=== PATIENT | female | born 1980 | race African-American/Black ===

== ENCOUNTER 2017-02-20 18:29 | Emergency (ER) | payer BC ==
[~2017-02-20] VITALS: Ht 154.9 cm; Wt 57.0 kg
[~2017-02-20 18:29] MED LIST: VIST50CA PO; Z.0.NO CURRENT MEDS
[2017-02-20 18:40] VITALS: BP 133/84; PULSE 72; RESP 16; TEMP 98.4; O2SAT 100
[2017-02-20 19:12] LABS: BLOOD, URINE LARGE (NEG); GLUCOSE,URINE NEG (NEG); KETONE, URINE NEG (NEG); NITRITE,URINE NEG (NEG)
[2017-02-20 19:22] LABS: MUCUS URINE FEW /lpf (OCC); RBC, URINE INNUM /hpf (0-3); SQUAMOUS EPITHELIAL CELL URINE 0-5 /hpf (0-5); URINE COLOR ORANGE (YELLW/STRAW)
[2017-02-20 19:23] LABS: COMMENT (UR) CULT NOT INDICATED; CULTURE IF INDICATED CULT NOT INDICATED; WBC, URINE 0-2 /hpf (0-5)
[2017-02-20] MEDS ORDERED: VENTAER INH (19:36)
[2017-02-20] MEDS ORDERED: ZANT300T PO (19:38)
[2017-02-20] MEDS ORDERED: BENT20TA PO (19:38)
--- NOTE | 2017-02-20 19:39 | PD ---
HPI Chief Complaint: GI Complaint Time Seen by Provider: 19:22 Travel History International Travel<30 days: No Contact w/Intl Traveler<30days: No Traveled to known affect area: No History of Present Illness HPI This 36-year-old female says she been having trouble with her stomach. She says she is always had trouble with her stomach but is been a little worse recently. He says after eating she feels distended. He takes a while for distention to go down. He has trouble laying on her left side uncomfortable for her laying on the right side is fine. She is not on any medication. She has cut back on her diet and the symptoms have not abated. There has not been any vomiting or diarrhea. [facility] Past Medical History Asthma: Yes (HAS NOT HAD TO USE AN INHALER SINCE 2006 ) Diminished Hearing: No Immunizations Current: Yes : 0 Social History Alcohol Use: No Tobacco Use: No Substance Use: No Allergies-Medications (Allergen,Severity, Reaction): Coded Allergies: Prednisone (Verified Allergy, Unknown, Twitching, 02/20/17) Reported Meds & Prescriptions Reported Meds & Active Scripts Active Vistaril (Hydroxyzine Pamoate) 50 Mg Cap 50-100 Mg PO HSPRN for sleep Reported No Current Meds (Miscellaneous Medication) Misc Review of Systems General / Constitutional: No: Fever, Chills Eyes: No: Diploplia, Blurred Vision HENT: No: Headaches, Vertigo Cardiovascular: No: Chest Pain or Discomfort, Palpitations Respiratory: No: Cough, Shortness of Breath Gastrointestinal: Positive: Abdominal Pain, No: Vomiting, Diarrhea Genitourinary: No: Urgency, Nocturia Musculoskeletal: No: Myalgias, Arthralgias Skin: No Rash Neurologic: No: Weakness Hematologic/Lymphatic: No: Easy Bruising Physical Exam Narrative GENERAL: Well-developed female SKIN: Focused skin assessment warm/dry. HEAD: Atraumatic. Normocephalic. EYES: Pupils equal and round. No scleral icterus. No injection or drainage. ENT: No nasal bleeding or discharge. Mucous membranes pink and moist. NECK: Trachea midline. No JVD. CARDIOVASCULAR: Regular rate and rhythm. No murmur appreciated. RESPIRATORY: No accessory muscle use. Clear to auscultation. Breath sounds equal bilaterally. GASTROINTESTINAL: Abdomen soft, non-tender, nondistended. Hepatic and splenic margins not palpable. Bowel sounds active MUSCULOSKELETAL: No obvious deformities. No clubbing. No cyanosis. No edema. NEUROLOGICAL: Awake and alert. No obvious cranial nerve deficits. Motor grossly within normal limits. Normal speech. PSYCHIATRIC: Appropriate mood and affect; insight and judgment normal. Data Data Last Documented VS Vital Signs Date Time Temp Pulse Resp B/P Pulse Ox O2 Delivery O2 Flow Rate FiO2 02/20/17 18:40 98.4 72 16 133/84 100 Orders Urinalysis - C+S If Indicated (02/20/17 18:45) Ed Urine Pregnancytest Poc (02/20/17 18:45) Labs Laboratory Tests Test 02/20/17 18:51 Urine Color ORANGE Urine Turbidity MOD Urine pH 7.0 Urine Specific [place] 1.018 Urine Protein 30 mg/dL Urine Glucose (UA) NEG mg/dL Urine Ketones NEG mg/dL Urine Occult Blood LARGE Urine Nitrite NEG Urine Bilirubin NEG Urine Leukocyte Esterase NEG Urine RBC INNUM /hpf Urine WBC 0-2 /hpf Urine Squamous Epithelial 0-5 /hpf Cells Urine Mucus FEW /lpf Microscopic Urinalysis Comment CULT NOT INDICATED MDM Medical Decision Making Medical Screen Exam Complete: Yes Emergency Medical Condition: Yes Medical Record Reviewed: Yes Differential Diagnosis Differential includes IBS, inflammatory bowel disease Narrative Course Symptoms are most consistent with IBS. I will give a trial of Bentyl and Zantac. We'll recommend GI follow-up if this does not help Diagnosis Primary Impression: Irritable bowel syndrome Qualified Code: K58.9 - Irritable bowel syndrome without diarrhea Scripts Dicyclomine (Bentyl)20 Mg Tab20 Mg PO TID #30 TAB Ref 0 Prov:Jose Cohen MD 02/20/17 Ranitidine (Zantac)300 Mg Xpc191 Mg PO DAILY #30 TAB Ref 0 Prov:Jose Cohen MD 02/20/17 Disposition: 01 DISCHARGE HOME Condition: Stable Jose Cohen MD Feb 20, 2017 19:39
[2017-02-20 19:47] VITALS: BP 140/90
== END 2017-02-20 19:50 | disposition home or self-care (01) ==
LOC: PHED 18:29
DX: K58.9 Irritable bowel syndrome, unspecified (principal); J45.909 Unspecified asthma, uncomplicated
CPT/HCPCS: 81001; 84703; 99284

== ENCOUNTER 2017-11-22 07:43 | Emergency (ER) | payer SELFPAY ==
[~2017-11-22] VITALS: Ht 154.9 cm; Wt 58.0 kg
[~2017-11-22 07:43] MED LIST changes: +BENT20TA PO; +VENTAER INH; -VIST50CA PO; -Z.0.NO CURRENT MEDS; +ZANT300T PO
[2017-11-22 07:46] VITALS: BP 124/73; PULSE 74; RESP 16; TEMP 98.6; O2SAT 100
--- NOTE | 2017-11-22 08:22 | PD ---
HPI Chief Complaint: Musculoskeletal Complaint Time Seen by Provider: 08:06 Travel History International Travel<30 days: No Contact w/Intl Traveler<30days: No Traveled to known affect area: No History of Present Illness HPI This 36-year-old female says that yesterday she had an adjustment of her neck. She is a student at [employer]. She had an adjustment which involves rotation of the neck. It was not a vigorous adjustment. After the adjustment she felt a bit dizzy and she had some headache. She noted some tenderness on the right occipital area. She decided to watch overnight. When she woke up this morning she was still having some headache but is better than before. She feels a little bit out of it but in a very vague sort of way. She has not been unsteady on her feet. She does not have any numbness or tingling. PFSH Past Medical History Asthma: Yes (HAS NOT HAD TO USE AN INHALER SINCE 2006 ) Diminished Hearing: No Immunizations Current: Yes Influenza Vaccination: No ?: Not LMP: 2 WEEKS : 0 Social History Alcohol Use: No Tobacco Use: No Substance Use: No Allergies-Medications (Allergen,Severity, Reaction): Coded Allergies: prednisone (Unverified Allergy, Unknown, Twitching, 11/22/17) Reported Meds & Prescriptions Reported Meds & Active Scripts Active Reported Ventolin Hfa 18 GM Inh (Albuterol Sulfate) 90 Mcg/Act Aer 2 Puff INH Q4-6H PRN Review of Systems General / Constitutional: No: Fever, Chills Eyes: No: Diploplia, Blurred Vision HENT: Positive: Headaches, Lightheadedness Cardiovascular: No: Chest Pain or Discomfort, Palpitations Respiratory: No: Cough, Shortness of Breath Gastrointestinal: No: Nausea, Vomiting Genitourinary: No: Urgency, Frequency Musculoskeletal: No: Myalgias Skin: No Rash, No Itching Neurologic: No: Syncope, Focal Abnormalities Hematologic/Lymphatic: No: Easy Bruising Physical Exam Narrative GENERAL: Well-developed female SKIN: Focused skin assessment warm/dry. HEAD: Atraumatic. Normocephalic. EYES: Pupils equal and round. No scleral icterus. No injection or drainage. Extraocular movements are full ENT: No nasal bleeding or discharge. Mucous membranes pink and moist. NECK: Trachea midline. No JVD. There is some tenderness in the right side of the lower occiput CARDIOVASCULAR: Regular rate and rhythm. No murmur appreciated. RESPIRATORY: No accessory muscle use. Clear to auscultation. Breath sounds equal bilaterally. GASTROINTESTINAL: Abdomen soft, non-tender, nondistended. Hepatic and splenic margins not palpable. MUSCULOSKELETAL: No obvious deformities. No clubbing. No cyanosis. No edema. NEUROLOGICAL: Awake and alert. No obvious cranial nerve deficits. Motor grossly within normal limits. Normal speech. PSYCHIATRIC: Appropriate mood and affect; insight and judgment normal. 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 I do not find any objective deficit and she says she feels better today than yesterday. I have offered to do a CT and CTA though I think the chance is quite remote. The patient is agreeable to return imaging at this time. I recommended aspirin or Tylenol or ibuprofen for her symptoms Diagnosis Primary Impression: Spasm of cervical paraspinous muscle Additional Instructions: Use Tylenol or ibuprofen for pain, return as needed Disposition: 01 DISCHARGE HOME Condition: Stable Jose Cohen MD Nov 22, 2017 08:22
== END 2017-11-22 08:34 | disposition home or self-care (01) ==
LOC: PHED 07:43
DX: M62.838 Other muscle spasm (principal)
CPT/HCPCS: 99282

== ENCOUNTER 2018-04-07 14:53 | Emergency (ER) | payer SELFPAY ==
[~2018-04-07 14:53] MED LIST changes: -BENT20TA PO; -ZANT300T PO
[2018-04-07 14:56] VITALS: BP 137/69; PULSE 96; RESP 16; TEMP 97.6; O2SAT 100
--- NOTE | 2018-04-07 15:25 | PD ---
HPI Chief Complaint: Headache Time Seen by Provider: 15:12 Travel History International Travel<30 days: No Contact w/Intl Traveler<30days: No Traveled to known affect area: No History of Present Illness HPI The patient was seen and examined in the presence of the nurse. Patient complains of headache. She has sharp shooting headaches that last a few seconds and resolve. She has other headaches that last hours and are more of a pressure sensation in the top of her head. She also has some muscular neck discomfort. Headaches are resolved with Motrin. No head injury. No thunderclap onset. Duration 1 month. No exacerbating factors. Symptom severity is mild to moderate PFSH Past Medical History Asthma: Yes (HAS NOT HAD TO USE AN INHALER SINCE 2006 ) Diminished Hearing: No Headaches: Yes Immunizations Current: Yes Tetanus Vaccination: < 5 Years Influenza Vaccination: No ?: Unknown LMP: 2 WEEKS : 0 Past Surgical History Surgical History: No Previous Surgery Social History Alcohol Use: Yes (Occ.) Tobacco Use: No Substance Use: No Allergies-Medications (Allergen,Severity, Reaction): Coded Allergies: prednisone (Unverified Allergy, Unknown, Twitching, 04/07/18) Reported Meds & Prescriptions Reported Meds & Active Scripts Active No Active Prescriptions or Reported Medications Review of Systems General / Constitutional: No: Fever Eyes: No: Visual changes HENT: Positive: Headaches Cardiovascular: No: Chest Pain or Discomfort Respiratory: No: Shortness of Breath Gastrointestinal: No: Abdominal Pain Genitourinary: No: Dysuria Musculoskeletal: No: Pain Skin: No Rash Neurologic: Positive: Headache, No: Weakness Psychiatric: No: Depression Endocrine: No: Polydipsia Hematologic/Lymphatic: No: Easy Bruising Physical Exam Narrative GENERAL: Well-nourished, well-developed patient in no apparent distress. SKIN: Focused skin assessment reveals no rash and nodules. Skin is Warm and dry. HEAD: Atraumatic. Normocephalic. EYES: Pupils equal and round. No scleral icterus. No injection or drainage. ENT: No nasal bleeding or discharge. Mucous membranes pink and moist. NECK: Trachea midline. No JVD. No meningeal signs. I do not see any bruising or swelling or spasm or tenderness or any objective finding CARDIOVASCULAR: Regular rate and rhythm. No murmur appreciated. RESPIRATORY: No accessory muscle use. Clear to auscultation. Breath sounds equal bilaterally. GASTROINTESTINAL: Abdomen soft, non-tender, nondistended. Hepatic and splenic margins not palpable. MUSCULOSKELETAL: No obvious deformities. No clubbing. No cyanosis. No edema. NEUROLOGICAL: Awake and alert. No obvious cranial nerve deficits. Motor grossly within normal limits. Normal speech. PSYCHIATRIC: Appropriate mood and affect; insight and judgment normal. Data Data Last Documented VS Vital Signs Date Time Temp Pulse Resp B/P (MAP) Pulse Ox O2 Delivery O2 Flow Rate FiO2 04/07/18 14:56 97.6 96 16 137/69 (91) 100 MDM Medical Decision Making Medical Screen Exam Complete: Yes Emergency Medical Condition: Yes Medical Record Reviewed: Yes Differential Diagnosis Differential diagnosis includes migraine, tension headache, cluster headache, meningitis. Narrative Course I have reviewed the patient's electronic medical record. 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 I do not see any red flags to suggest emergent imaging is indicated. She looks comfortable. Her headaches go away with Motrin. She should follow-up with primary care or neurology. Diagnosis Primary Impression: Headache Qualified Codes: R51 - Headache Additional Instructions: The patient was advised to follow up with their physician and return if they worsen. Med/Other Pt SpecificInfo: Other Scripts No Active Prescriptions or Reported Meds Disposition: 01 DISCHARGE HOME Condition: Stable Sukhi Reyes MD Apr 07, 2018 15:25
== END 2018-04-07 15:40 | disposition home or self-care (01) ==
LOC: PHED 14:53
DX: R51 Headache (principal); J45.909 Unspecified asthma, uncomplicated
CPT/HCPCS: 99282

== ENCOUNTER 2018-04-12 21:59 | Emergency (ER) | payer SELFPAY ==
[~2018-04-12] VITALS: Ht 154.9 cm; Wt 60.8 kg
[2018-04-12 22:03] VITALS: BP 147/82; PULSE 86; RESP 18; TEMP 97.6; O2SAT 100
[2018-04-12] MEDS ORDERED: VENTAER INH (22:16)
--- NOTE | 2018-04-12 22:23 | PD ---
HPI Chief Complaint: Chest Pain Time Seen by Provider: 22:14 Travel History International Travel<30 days: No Contact w/Intl Traveler<30days: No Traveled to known affect area: No History of Present Illness HPI 37yo F with PMH of asthma presents to the ED with c/o midsternal chest pain since 11pm last night. Pain is burning and worst after eating. Had felt a little sob last night but took her albuterol inhaler and has not had any more sob. +Nausea. Denies any fever, vomiting, abdominal pain, focal weakness or numbness. Pt said she has had this pain before but feels worst this time. Took mylanta and pain improved but returned. Pt denies any family history of early cardiac . Denies any PFSH Past Medical History Asthma: Yes Chest Pain: Yes Diminished Hearing: No Gastrointestinal Disorders: Yes (UNDIAGNOSED REFLUX) Headaches: Yes Immunizations Current: Yes Influenza Vaccination: No ?: Not : 0 Past Surgical History Surgical History: No Previous Surgery Social History Alcohol Use: Yes (Occ.) Tobacco Use: No Substance Use: No Allergies-Medications (Allergen,Severity, Reaction): Coded Allergies: prednisone (Unverified Allergy, Unknown, Twitching, 04/12/18) Reported Meds & Prescriptions Reported Meds & Active Scripts Active Reported Ventolin Hfa 18 GM Inh (Albuterol Sulfate) 90 Mcg/Act Aer 2 Puff INH Q4-6H PRN Review of Systems Except as stated in HPI: all other systems reviewed are Neg Physical Exam Narrative GENERAL: 37yo F not in distress. SKIN: Focused skin assessment warm/dry. HEAD: Atraumatic. Normocephalic. EYES: Pupils equal and round. No scleral icterus. No injection or drainage. ENT: No nasal bleeding or discharge. Mucous membranes pink and moist. NECK: Trachea midline. No JVD. CARDIOVASCULAR: Regular rate and rhythm. No murmur appreciated. RESPIRATORY: No accessory muscle use. Clear to auscultation. Breath sounds equal bilaterally. GASTROINTESTINAL: Abdomen soft, non-tender, nondistended. MUSCULOSKELETAL: No obvious deformities. No clubbing. No cyanosis. No edema. NEUROLOGICAL: Awake and alert. No obvious cranial nerve deficits. Motor grossly within normal limits. Normal speech. PSYCHIATRIC: Appropriate mood and affect; insight and judgment normal. Data Data Last Documented VS Vital Signs Date Time Temp Pulse Resp B/P (MAP) Pulse Ox O2 Delivery O2 Flow Rate FiO2 04/12/18 22:35 67 16 147/92 (110) 100 Room Air 04/12/18 22:03 97.6 Orders Orders Basic Metabolic Panel (Bmp) (04/12/18 22:19) Complete Blood Count With Diff (04/12/18 22:19) Troponin I (04/12/18 22:19) Lipase (04/12/18 22:19) Chest, Single Ap (04/12/18 22:19) Al-Mag Hy-Si 40-40-4 Mg/Ml Liq (Mag-Al P (04/12/18 22:30) Lidocaine 2% Viscous (Xylocaine 2% Visco (04/12/18 22:30) Ondansetron Odt (Zofran Odt) (04/12/18 22:30) Labs Laboratory Tests Test 04/12/18 22:23 White Blood Count 4.8 TH/MM3 Red Blood Count 4.24 MIL/MM3 Hemoglobin 10.7 GM/DL Hematocrit 33.8 % Mean Corpuscular Volume 79.8 FL Mean Corpuscular Hemoglobin 25.3 PG Mean Corpuscular Hemoglobin Concent 31.7 % Red Cell Distribution Width 17.1 % Platelet Count 318 TH/MM3 Mean Platelet Volume 7.9 FL Neutrophils (%) (Auto) 35.7 % Lymphocytes (%) (Auto) 46.3 % Monocytes (%) (Auto) 12.5 % Eosinophils (%) (Auto) 4.6 % Basophils (%) (Auto) 0.9 % Neutrophils # (Auto) 1.7 TH/MM3 Lymphocytes # (Auto) 2.3 TH/MM3 Monocytes # (Auto) 0.6 TH/MM3 Eosinophils # (Auto) 0.2 TH/MM3 Basophils # (Auto) 0.0 TH/MM3 CBC Comment DIFF FINAL Differential Comment Blood Urea Nitrogen 10 MG/DL Creatinine 0.76 MG/DL Random Glucose 92 MG/DL Calcium Level 9.1 MG/DL Sodium Level 139 MEQ/L Potassium Level 3.8 MEQ/L Chloride Level 107 MEQ/L Carbon Dioxide Level 23.9 MEQ/L Anion Gap 8 MEQ/L Estimat Glomerular Filtration Rate 105 ML/MIN Troponin I LESS THAN 0.02 NG/ML Lipase 205 U/L MDM Medical Decision Making Medical Screen Exam Complete: Yes Emergency Medical Condition: Yes Interpretation(s) EKG: NSR 69bpm. Normal axis. RBBB. Differential Diagnosis GERD vs. gastritis vs. peptic ulcer disease vs. atypical chest pain Narrative Course 37yo F with burning chest pain that is worst with eating. Labs reviewed, no leukocytosis. H/H mildly decreased. Troponin negative. Lipase normal. CXR negative. Pt given GI cocktail and zofran. Reevaluated at bedside and pain has completely resolved. Do not think this is cardiac. Return precautions given. Diagnosis Primary Impression: GERD (gastroesophageal reflux disease) Qualified Codes: K21.9 - Gastro-esophageal reflux disease without esophagitis Patient Instructions: General Instructions Departure Forms: Tests/Procedures Additional Instructions: Please follow up with your primary care physician in 2-3 days. Return to the ED if symptoms worsen. Med/Other Pt SpecificInfo: Prescription(s) given Scripts Omeprazole (Omeprazole) 20 Mg Tab 20 MG PO DAILY for 7 Days, #7 TAB 0 Refills Prov: Alessandra Winters DO 04/12/18 Disposition: 01 DISCHARGE HOME Condition: Stable Alessandra Winters DO Apr 12, 2018 22:22
[2018-04-12] MEDS ORDERED: ALUMINUM/MAGNESIUM/SIMETH 30 ML CUP PO ONE (22:30)
[2018-04-12] MEDS ORDERED: LIDOCAINE VISCOUS 2% SOLN 15 ML UDC PO ONE (22:30)
[2018-04-12] MEDS ORDERED: ONDANSETRON ODT 4 MG TAB PO ONE (22:30)
[2018-04-12 22:35] VITALS: BP 147/92; PULSE 67; RESP 16; O2SAT 100
[2018-04-12 22:47] LABS: AUTOMATED NEUTROPHIL # 1.7 TH/MM3 (1.8-7.7); BASOPHIL % 0.9 % (0.0-2.0); EOSINOPHIL # 0.2 TH/MM3 (0-0.4); EOSINOPHIL % 4.6 % (0.0-4.0); HEMATOCRIT 33.8 % (35.0-46.0); HEMOGLOBIN 10.7 GM/DL (11.6-15.3); LYMPH % 46.3 % (9.0-44.0); LYMPHOCYTE # 2.3 TH/MM3 (1.0-4.8); MEAN CELL VOLUME 79.8 FL (80.0-100.0); MEAN CORPUSCULAR HEMOGLOBIN 25.3 PG (27.0-34.0); MEAN CORPUSCULAR HGB CONC 31.7 % (32.0-36.0); MEAN PLATELET VOLUME 7.9 FL (7.0-11.0); MONO % 12.5 % (0.0-8.0); MONOCYTE # 0.6 TH/MM3 (0-0.9); NEUT % 35.7 % (16.0-70.0); PLATELET COUNT 318 TH/MM3 (150-450); RED BLOOD COUNT 4.24 MIL/MM3 (4.00-5.30); RED CELL DISTRIBUTION WIDTH 17.1 % (11.6-17.2); WHITE BLOOD COUNT 4.8 TH/MM3 (4.0-11.0)
--- NOTE | 2018-04-12 22:50 | RADRPT ---
EXAM DATE: 04/12/2018 10:45 PM EDT AGE/SEX: 37 years / Female INDICATIONS: Midline chest pain for 2 days CLINICAL DATA: This is the patient's initial encounter. Patient reports that signs and symptoms have been present for 2 days and indicates a pain score of 8/10. MEDICAL/SURGICAL HISTORY: Asthma. None. COMPARISON: No prior exams available for comparison. FINDINGS: A single AP view of the chest demonstrates the lungs to be symmetrically aerated without evidence of mass, infiltrate or effusion. The cardiomediastinal contours are unremarkable. Slight S-shaped thora columbar scoliosis. CONCLUSION: No acute disease Electronically signed by: rFeddy Peters MD 04/12/2018 10:49 PM EDT
[2018-04-12 22:54] LABS: CHLORIDE 107 MEQ/L (98-107); SODIUM (NA) 139 MEQ/L (136-145)
[2018-04-12 22:57] LABS: CALCIUM 9.1 MG/DL (8.5-10.1)
[2018-04-12 22:58] LABS: BICARBONATE 23.9 MEQ/L (21.0-32.0); BLOOD UREA NITROGEN 10 MG/DL (7-18); GLUCOSE,RANDOM 92 MG/DL (74-106)
[2018-04-12 23:01] LABS: CREATININE 0.76 MG/DL (0.50-1.00); GLOMERULAR FILTRATION RATE 105 ML/MIN (>89)
[2018-04-12 23:05] LABS: TROPONIN I LESS THAN 0.02 NG/ML (0.02-0.05)
[2018-04-12] MEDS ORDERED: OMEP20TA93 PO (23:36)
[2018-04-12 23:50] VITALS: BP 132/84; PULSE 74; RESP 16; O2SAT 100
--- NOTE | 2018-04-13 18:16 | EKG ---
Date Performed: 04/12/2018 Time Performed: 22:19:46 PTAGE: 37 years EKG: Sinus rhythm WITH SINUS ARRHYTHMIA INDETERMINATE AXIS INCOMPLETE RIGHT BUNDLE BRANCH BLOCK BORDERLINE ECG NO PREVIOUS TRACING DOCTOR: Jena Kan Interpretating Date/Time 04/13/2018 18:12:04
== END 2018-04-12 23:56 | disposition home or self-care (01) ==
LOC: PHED 21:59
DX: K21.9 Gastro-esophageal reflux disease without esophagitis (principal); I45.10 Unspecified right bundle-branch block; I49.9 Cardiac arrhythmia, unspecified; J45.909 Unspecified asthma, uncomplicated; Z79.51 Long term (current) use of inhaled steroids; Z88.8 Allergy status to other drugs, medicaments and biological substances
CPT/HCPCS: 71045; 80048; 83690; 84484; 85025; 93005; 99284